=== PATIENT | male | born 1955 | race Caucasian/White ===

== ENCOUNTER 2022-09-13 17:00 | Outpatient (RCR) | payer MEDICARE, SELFPAY | END 2022-09-23 09:10 | disposition home or self-care (01) | LOC: PT.CARL 17:00 | PROVIDERS: Visit Provider Orthopaedic Surgery | DX: M51.36 Other intervertebral disc degeneration, lumbar region (principal) | CPT/HCPCS: 97010; 97014; 97110; 97140; 97163; G0283 ==